=== PATIENT | female | born 2000 ===

== ENCOUNTER 2021-03-06 22:11 | Emergency (ER) | payer SELFPAY ==
[2021-03-07 12:07] LABS: SARS-CoV-2 PCR by NAA Not Detected (NotDetected)
== END 2021-03-06 22:53 | disposition home or self-care (01) ==
LOC: ERS 22:11
DX: H66.91 Otitis media, unspecified, right ear (principal); Z20.822 Contact with and (suspected) exposure to COVID-19
CPT/HCPCS: 99283; U0003; U0005